=== PATIENT | female | born 1945 | race Caucasian/White ===

== ENCOUNTER → 2022-11-07 | Outpatient (CLI) | payer MEDICARE, OTHER ==
[2022-11-07 15:46] LABS: BUN/Creat Ratio 14.27 Ratio (12.00-20.00); Blood Urea Nitrogen 21.4 mg/dL (9.0-27.0); Calcium 9.8 mg/dL (8.7-10.3); Carbon Dioxide 23.6 mmol/L (21.6-31.8); Chloride 100 mmol/L (96-109); Glucose 110 mg/dL (70-110); Potassium 4.6 mmol/L (3.5-5.5); Sodium 136 mmol/L (135-145)
[2022-11-07 16:17] LABS: Basophils # (A) 0.03 X 10*3/uL (0.00-0.10); Basophils % (A) 0.4 %; Eosinophils # (A) 0.07 X 10*3/uL (0.04-0.35); Eosinophils % (A) 0.9 %; HCT 37.4 % (37.2-46.3); HGB 13.1 d/dL (12.0-15.0); Lymphocytes # (A) 1.66 X 10*3/uL (0.90-5.00); MCH 32.8 pg (27.0-32.0); MCV 93.5 FL (80.0-97.0); Mean Platelet Volume 8.9 FL (9.5-12.2); Monocytes # (A) 0.72 X 10*3/uL (0.20-1.00); Monocytes % (A) 9.1 %; NRBC Per 100 WBC 0 X 10*3/uL (0.00-0.01); Neutrophils # (A) 5.39 X 10*3/uL (1.80-7.70); Neutrophils % (A) 68.2 %; Platelet Count 284 X 10*3/uL (140-440); RDW 11.2 % (11.5-14.5)
== END | disposition home or self-care (01) ==
LOC: LABPAT 11:10
PROVIDERS: ATTEND Urology
DX: Z01.812 Encounter for preprocedural laboratory examination (principal); N20.0 Calculus of kidney; N20.1 Calculus of ureter
CPT/HCPCS: 36415; 80048; 85025

== ENCOUNTER 2022-11-17 05:52 | Day surgery (SDC) | payer MEDICARE, OTHER ==
--- NOTE | 2022-11-16 13:42 | P.GSHP ---
History of Present Illness H&P Date: 11/16/22 Chief Complaint: Left renal colic The patient is a 77-year-old white female with no prior history of urolithiasis. Beginning in late September, she has experienced intermittent left flank pain. CT scan shows moderate left hydronephrosis due to a 9 mm UPJ calculus, as well as a 5 mm left lower pole renal calculus. - Constitutional Constitutional: Denies chills, Denies fever - Gastrointestinal Gastrointestinal: Reports nausea, Reports vomiting - Genitourinary (Female) Genitourinary: Reports flank pain, Reports kidney stones, Denies hematuria Past Medical History Past Medical History: Hypertension, Osteoarthritis (OA), Renal Disease Additional Past Medical History / Comment(s): Kidney stones, recent hospitalization with kidney stones, nausea alot and gas. History of Any Multi-Drug Resistant Organisms: None Reported Past Surgical History: Appendectomy, Back Surgery, Joint Replacement, Tubal Ligation Additional Past Surgical History / Comment(s): Total R knee arthroplasty and total L hip arthroplasty, L4-L5 fusion Past Anesthesia/Blood Transfusion Reactions: Postoperative Nausea & Vomiting (PONV) Additional Past Anesthesia/Blood Transfusion Reaction / Comment(s): Pt has never received blood. Smoking Status: Former smoker - Past Family History Father Family Medical History: Congestive Heart Failure (CHF) Mother History Unknown: Yes Medications and Allergies Home Medications Medication Instructions Recorded Confirmed Type Famotidine 40 mg PO HS 11/15/22 11/15/22 History Metoprolol Succinate [Toprol XL] 50 mg PO QA 11/15/22 11/15/22 History Sertraline [Zoloft] 50 mg PO 11/15/22 11/15/22 History amLODIPine 10 mg PO QA 11/15/22 11/15/22 History Allergies Allergy/AdvReac Type Severity Reaction Status Date / Time No Known Allergies Allergy Verified 11/15/22 10:50 Surgical - Exam - General well developed, well nourished, no distress - Neck no masses, trachea midline - Respiratory normal respiratory effort - Abdomen Abdomen: soft, non tender, no guarding, no rigid, no rebound - Psychiatric oriented to time, oriented to person, oriented to place, speech is normal, memory intact Results - Imaging CT scan - abdomen: report reviewed Assessment and Plan (1) Calculus of ureter Status: Acute Code(s): N20.1 - CALCULUS OF URETER SNOMED Code(s): 12230228 (2) Calculus of kidney Status: Acute Code(s): N20.0 - CALCULUS OF KIDNEY SNOMED Code(s): 55657557 Plan: Cystoscopy, left ureteroscopy with Holmium laser lithotripsy and left ureteral stent insertion, possible stone basketing. The procedure then reviewed in detail with the patient. She is aware of potential risks, which include anesthesia, bleeding, infection, ureteral injury, and inability to successfully remove both calculi. She may require a secondary procedure.
[~2022-11-17 05:52] MED LIST: DEXAMETHASONE SOD PHOSPHATE 4 MG/ML 1 ML VIAL IV ONE; LACTATED RINGERS 1,000 ML IV SCH; LIDOCAINE 1% (10MG/ML) FOR IV START INTRADERMA PRN; ONDANSETRON 4 MG/2 ML VIAL IVP ONE
--- NOTE | 2022-11-17 06:59 | XR ---
EXAMINATION TYPE: XR KUB DATE OF EXAM: 11/17/2022 HISTORY: Pain Comparison: None.Single KUB is submitted for interpretation. Findings: Right renal calculi: None Visualized. Right ureteral calculi: None Visualized. Left renal calculi: None Visualized. Left ureteral calculi: There is a 7.5 mm calculus mid portion of the left ureter at the L3-4 level. No additional calculi seen at this time. Pelvic calcifications: None Visualized. Bowel gas pattern is unremarkable. No free air. No mass effects. IMPRESSION: 1. As above
[2022-11-17] MEDS ORDERED: METOCLOPRAMIDE 5 MG/ML 2 ML VIAL IVP PRN (07:00)
[2022-11-17] MEDS ORDERED: HYDROmorphone 0.5 MG/0.5 ML SYRINGE IVP PRN (07:00)
[2022-11-17] MEDS ORDERED: SUCCINYLCHOLINE CHLORIDE 200 MG/10 ML VIAL IV ONE (07:25)
[2022-11-17] MEDS ORDERED: PROPOFOL 10 MG/ML 20 ML VIAL IV ONE (07:25)
[2022-11-17] MEDS ORDERED: LIDOCAINE 2% INJ 20 MG/ML (2 ML VIAL) ONE (07:25)
[2022-11-17] MEDS ORDERED: ePHEDrine 50 MG/ML 1 ML VIAL ONE (07:25)
[2022-11-17] MEDS ORDERED: MIDAZOLAM 2 MG/2 ML VIAL ONE (07:25)
[2022-11-17] MEDS ORDERED: fentaNYL (PF) 50 MCG/ML 2 ML AMP ONE (07:25)
--- NOTE | 2022-11-17 08:54 | P.OP ---
Date of Procedure: 11/17/22 Preoperative Diagnosis: Left ureteral calculus, left renal calculus Postoperative Diagnosis: Same Procedure(s) Performed: Cystoscopy, left ureteroscopy with Holmium laser lithotripsy and stone basketing, left ureteral stent insertion Anesthesia: ALBERA Surgeon: Rodríguez Garay Estimated Blood Loss (ml): 5 IV fluids (ml): 700 Pathology: other (Calculus fragment, sent for chemical analysis) Condition: stable Disposition: PACU Indications for Procedure: The patient is a 77-year-old white female with no prior history of urolithiasis. Beginning in late September, she has experienced intermittent left flank pain. CT scan shows moderate left hydronephrosis due to a 9 mm UPJ calculus, as well as a 5 mm left lower pole renal calculus. Operative Findings: 8-9 mm left proximal ureteral calculus, 4-5 mm left lower pole renal calculus. Both fragmented. Description of Procedure: The patient was taken to the operating room and placed in the dorsolithotomy position, with legs supported in Jaavd stirrups. The external genitalia was prepped and draped sterilely. The 30 lens was used to introduce the 21-Bangladeshi Miguel cystoscopic sheath through the urethra and into the bladder under direct vision. The bladder was examined in its entirety. Both ureteral orifices were normal anatomic location and configuration, and clear urine effluxed from both. No tumors or foreign bodies were seen. A 0.038 inch Glidewire was passed through the cystoscope. The left ureteral orifice was cannulated, and the Glidewire was advanced up to the renal pelvis. The cystoscope was removed, and an 11/13-Bangladeshi ureteral access catheter was passed over the wire, up to the proximal ureter. The Miguel Soxiablera flexible ureteroscope was then passed through the ureteral access catheter sheath and advanced under direct vision up to the stone. The 272 micron Holmium laser probe was passed through the ureteroscope, and lithotripsy was performed. Once the majority of the calculus was dusted, a remaining portion refluxed into the kidney. It was trapped within an upper pole calyx, where lithotripsy was completed. Next, each calyx was examined, and a 4- 5 mm calculus was seen within a lower pole calyx. A nitinol basket was used to grasp the calculus and reposition it into an upper pole calyx, where the stone was dusted and fragmented. The largest piece was removed via Stone basketing, measuring approximately 2 mm in size. This was sent for chemical analysis. The remainder of the calculus fragments were dusted. Pullout ureteroscopy showed no evidence of ureteral trauma. The Glidewire was replaced through the ureteroscope, and backloaded into the cystoscope, which was passed into the bladder. A 24 cm, 4.8-Bangladeshi double-J ureteral stent was placed over the wire. Proper stent positioning was verified fluoroscopically and endoscopically. The bladder was emptied and the cystoscope removed. The patient tolerated the procedure well and was taken to the recovery room in stable condition. MUSIC ROCKS Report: Procedure Acuity: Semi-Urgent Stone Size and Location: 9 mm, left proximal ureter. 4-5 mm, left lower pole renal calculus. Ureteral Dilation: No Ureteral Access Sheath Used: Yes Stone Sent for Analysis: Yes All Stones/Fragments Were Removed with a Basket: No Complications: No Preoperative Antibiotics Given: Yes Stent Placed: Yes If Stent Placed, Was String Left Attached: No If Stent Placed, When is it to be Removed: 1 week Discharge Medications: Tolterodine
[2022-11-17 09:03] VITALS: TEMP 97.9
[2022-11-17 09:13] VITALS: RESP 16
--- NOTE | 2022-11-17 09:36 | FL ---
Fluoroscopy History: LT SIDE KIDNEY/UPJ STONE fl time 0.20 mins dap 1.5006 left stone lithotripsy and stent placement
[2022-11-17 10:16] VITALS: BP 155/82; PULSE 76
== END 2022-11-17 10:36 | disposition home or self-care (01) ==
LOC: OR 05:52
PROVIDERS: ATTEND Urology
DX: N20.2 Calculus of kidney with calculus of ureter (principal); I10 Essential (primary) hypertension; M19.90 Unspecified osteoarthritis, unspecified site; Z87.442 Personal history of urinary calculi; Z90.49 Acquired absence of other specified parts of digestive tract; Z98.51 Tubal ligation status; Z96.651 Presence of right artificial knee joint; Z87.891 Personal history of nicotine dependence; Z79.899 Other long term (current) drug therapy
CPT/HCPCS: 82365; 74018; 52356; C1769; J2250; J0330; J1100; J2765; J0690; J2405; J3010; J2704; J2001

== ENCOUNTER → 2023-08-08 | Outpatient (CLI) | payer MEDICARE ==
[2023-08-08 19:45] LABS: Calcium 10.4 mg/dL (8.7-10.3); Carbon Dioxide 26.1 mmol/L (21.6-31.8); Chloride 104 mmol/L (96-109); Chol/HDL Ratio 2.36 Ratio; Glucose 106 mg/dL (70-110); LDL Cholesterol,Calculated 119.2 mg/dL (0.0-131.0); Potassium 4.3 mmol/L (3.5-5.5); Sodium 142 mmol/L (135-145); VLDL Calculation 17.82 mg/dL (5.00-40.00)
== END | disposition home or self-care (01) ==
LOC: LABWHC1 10:20
PROVIDERS: ATTEND Nurse Practitioner Family
DX: I10 Essential (primary) hypertension (principal); E55.9 Vitamin D deficiency, unspecified; E04.1 Nontoxic single thyroid nodule
CPT/HCPCS: 36415; 80048; 80061; 82306; 84443